=== PATIENT | male | born 1995 | race Caucasian/White ===

== ENCOUNTER → 2016-12-12 | Outpatient (CLI) | payer OTHER ==
--- NOTE | 2016-12-16 11:38 | EM ---
24 HOUR DCG REPORT DATE OF SERVICE: AGE: 21Y SEX: M INDICATIONS: Patient in his diary indicated 2 episodes of palpitations. Predominant rhythm is sinus with a heart rate ranging from 45 to 130 beats per minute with average heart rate of 34 beats per minute. No significant ectopy was noted. Patient perceived palpitations and at that time he was in a sinus rhythm with some PACs. There is no correlation of any significant arrhythmia when he felt episodes of palpations. There is predominantly a sinus rhythm with some PACs, no PVCs were noted. There was no evidence of any significant bradyarrhythmia. FINAL IMPRESSION: Predominate rhythm is sinus with premature atrial contractions. No significant arrhythmia was noted and when patient complained of some palpation, there was no significant arrhythmia.
== END | disposition home or self-care (01) ==
LOC: RADECHMAIN 11:39
PROVIDERS: ATTEND Nurse Practitioner Family
DX: I49.1 Atrial premature depolarization (principal)
CPT/HCPCS: 93225; 93226